=== PATIENT | female | born 1950 | race Caucasian/White ===

== ENCOUNTER → 2021-12-12 | Outpatient (CLI) | payer MEDICARE, BC ==
[2021-12-12 15:02] VITALS: BP 143/81; PULSE 68; RESP 16; TEMP 97.9
--- NOTE | 2021-12-12 15:02 | P.HPBAR ---
Bariatric H&P - History & Physicial H&P Date: 12/12/21 History & Physicial: Visit/CC: Patient initial contact: Initial weight: Initial weight in pounds: Height: Initial BMI: Last weight: Current weight: Current weight in pounds: Current BMI: [place] body weight (based on NIH guidelines): Excess body weight loss: The patient is a 71 year-old F who presents for Bariatric Assessment. Patient presents today for bariatric follow-up. She has appears history of LAP-BAND surgery. Patient was sent for LAP-BAND removed. Surgical - Exam - General well developed, well nourished, no distress - Eyes PERRL - ENT normal pinna - Neck no masses - Respiratory normal expansion, normal respiratory effort - Cardiovascular Rhythm: regular - Abdomen Abdomen: soft, non tender Bariatric Assessment & Plan Plan: Patient will have her LAP-BAND removed. She's had some chronic GERD and dysphagia. Bariatric Checklist Checklist: Plan: Checklist: EGD: 1. Hiatal hernia: 2. H. Pylori: HgbA1c: Vitamin D: Smoking: Primary care physician referral: Psychiatry clearance: Cardiology clearance: Sleep study: Diet journal: VTE risk score: VTE risk level: Rehab needs at discharge:
== END ==
LOC: BARWHC3 13:54
PROVIDERS: ATTEND Surgery
DX: Z09 Encounter for follow-up examination after completed treatment for conditions other than malignant neoplasm (principal); E66.01 Morbid (severe) obesity due to excess calories; Z68.30 Body mass index [BMI] 30.0-30.9, adult; Z98.84 Bariatric surgery status
CPT/HCPCS: 99211

== ENCOUNTER 2022-01-10 07:01 | Day surgery (SDC) | payer MEDICARE, BC ==
[2022-01-05 09:09] VITALS: BMI 29.0
[~2022-01-10 07:01] MED LIST: DEXAMETHASONE SOD PHOSPHATE 4 MG/ML 1 ML VIAL IV ONE; HYDROmorphone 0.5 MG/0.5 ML SYRINGE IVP PRN; LACTATED RINGERS 1,000 ML IV SCH; LIDOCAINE 1% (10MG/ML) FOR IV START INTRADERMA PRN; MIDAZOLAM 2 MG/2 ML VIAL IV PRN; ONDANSETRON 4 MG/2 ML VIAL IVP ONE
[2022-01-10] MEDS ORDERED: ONDANSETRON 4 MG/2 ML VIAL ONE (07:42)
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
[2022-01-10] MEDS ORDERED: PROPOFOL 10 MG/ML 20 ML VIAL IV ONE (08:17)
[2022-01-10] MEDS ORDERED: MIDAZOLAM 2 MG/2 ML VIAL ONE (08:17)
[2022-01-10] MEDS ORDERED: KETOROLAC 15 MG/ML 1 ML VIAL ONE (08:17)
[2022-01-10] MEDS ORDERED: fentaNYL (PF) 50 MCG/ML 2 ML AMP ONE (08:17)
[2022-01-10] MEDS ORDERED: SUCCINYLCHOLINE CHLORIDE 200 MG/10 ML VIAL IV ONE (08:17)
[2022-01-10] MEDS ORDERED: BUPIVACAIN-EPI 0.25%-1:200,000 30 ML VIAL SQ ONE (08:37)
--- NOTE | 2022-01-10 09:10 | P.OP ---
Date of Procedure: 01/10/22 Preoperative Diagnosis: Dysphagia Postoperative Diagnosis: Dysphagia Procedure(s) Performed: Laparoscopic removal of LAP-BAND system Anesthesia: CARTER Surgeon: Osman Vincent Estimated Blood Loss (ml): 10 Pathology: none sent Condition: stable Disposition: PACU Description of Procedure: Patient's placed on the operative table in supine position. She received IV sedation. She then received general and seizure. Her abdomen was prepped and draped usual fashion. The patient's placed in dorsal 5 position. She was placed in reverse Trendelenburg position. The skin incision sites were anesthetized 1% local Xylocaine. The skin was incised the port site and using blunt and sharp dissection with cautery the LAP-BAND port was dissected free from subcutaneous tissue. The PEG tube was cut and the port was withdrawn. Next using a Veress needle in the left upper quadrant the peritoneal cavity is entered and then the abdomen was insufflated. After adequate insufflation the 5 mm optical trocar is placed in the peritoneal cavity at the LAP-BAND port site. Next a 5 mm trochars placed in the right epigastric, right lateral, left lateral his edition. And then in the left periumbilical position. The original 5 mm trocar was exchanged for a 15 mm trocar at the port site. The LAP-BAND device was visualized after the left lateral lobe liver was retracted. Adhesions Saumya device were then lysed using sharp dissection and electrocautery. The LAP-BAND was then cut next the buckle and withdrawn from around stomach. The LAP-BAND was then withdrawn through the 15 mm trocar site. Air is no evidence of any injury to the stomach or small bowel. There is no bleeding seen. The trochars withdrawn. The skin was closed interrupted 3-0 Monocryl suture. Dermabond was applied. Patient tolerated the procedure procedure well will was sent to recovery room in stable condition.
[2022-01-10 09:25] VITALS: RESP 16; TEMP 97.9
[2022-01-10 10:55] VITALS: BP 166/86; PULSE 70
== END 2022-01-10 11:18 | disposition home or self-care (01) ==
LOC: OR 07:01
PROVIDERS: ATTEND Surgery
DX: Z46.51 Encounter for fitting and adjustment of gastric lap band (principal); E66.01 Morbid (severe) obesity due to excess calories; I10 Essential (primary) hypertension; M19.90 Unspecified osteoarthritis, unspecified site; Z87.891 Personal history of nicotine dependence; R13.10 Dysphagia, unspecified; Z79.01 Long term (current) use of anticoagulants; Z86.718 Personal history of other venous thrombosis and embolism; Z90.49 Acquired absence of other specified parts of digestive tract
CPT/HCPCS: 43774; J2250; J0330; J1100; J0690; J2405; J3010; J1885; J2704

== ENCOUNTER → 2022-01-30 | Outpatient (CLI) | payer MEDICARE, BC ==
[2022-01-30 13:57] VITALS: BP 184/82; PULSE 71; RESP 16; TEMP 98.1; BMI 30.2
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
== END ==
LOC: BARWHC3 13:38
PROVIDERS: ATTEND Surgery
DX: Z48.815 Encounter for surgical aftercare following surgery on the digestive system (principal); Z98.84 Bariatric surgery status; E66.01 Morbid (severe) obesity due to excess calories; Z68.30 Body mass index [BMI] 30.0-30.9, adult; Z88.5 Allergy status to narcotic agent; Z88.1 Allergy status to other antibiotic agents; Z88.6 Allergy status to analgesic agent
CPT/HCPCS: 99211